=== PATIENT | male | born 1940 | race Two or more races ===

== ENCOUNTER 2017-12-11 10:05 | Outpatient (CLI) | payer OTHER ==
[~2017-12-11 10:05] MED LIST: CAMBIA50 MG; FOLIC ACID1 MG; GLIMEPIRIDE4 MG; NABUMETONE500 MG PO; PERCOCET 5-3251 EACH PO; SIMVASTATIN20 MG
== END 2017-12-11 10:07 | disposition home or self-care (01) ==
LOC: RAD 10:05
DX: Z98.890 Other specified postprocedural states (principal)

== ENCOUNTER 2017-12-12 10:02 | Outpatient (CLI) | payer OTHER | END 2017-12-12 10:03 | disposition home or self-care (01) | LOC: NUCLEAR 10:02 | DX: G90.50 Complex regional pain syndrome I, unspecified (principal) | CPT/HCPCS: 78315; A9503 ==

== ENCOUNTER 2018-02-02 07:36 | Outpatient (CLI) | payer OTHER | END 2018-02-02 07:45 | disposition home or self-care (01) | LOC: LAB 07:36 | DX: D32.0 Benign neoplasm of cerebral meninges (principal); Z51.81 Encounter for therapeutic drug level monitoring ==

== ENCOUNTER 2018-02-04 10:41 | Outpatient (CLI) | payer OTHER | END 2018-02-04 17:00 | disposition home or self-care (01) | LOC: MRI 10:41 | DX: D32.0 Benign neoplasm of cerebral meninges (principal) | CPT/HCPCS: 70553; A9579; 70552 ==